=== PATIENT | male | born 1950 | race Caucasian/White ===

== ENCOUNTER 2021-01-24 13:28 | Outpatient (CLI) | payer MEDICARE, BC | END 2021-01-24 23:59 | disposition home or self-care (01) | LOC: MSC 13:28 | PROVIDERS: ATTEND Internal Medicine | DX: R80.9 Proteinuria, unspecified (principal); I10 Essential (primary) hypertension; J44.9 Chronic obstructive pulmonary disease, unspecified; Z87.891 Personal history of nicotine dependence; Z79.899 Other long term (current) drug therapy ==